=== PATIENT | female | born 1970 | race Caucasian/White ===

== ENCOUNTER 2020-02-03 15:05 | Emergency (ER) | payer MEDICAID ==
[~2020-02-03] VITALS: Ht 165.1 cm; Wt 78.6 kg
[~2020-02-03 15:05] MED LIST: ELA25 PO; ORE25 PO
[2020-02-03 15:06] VITALS: BP 150/67
--- NOTE | 2020-02-03 15:15 | NUR ---
PT C/O LEFT SHOULDER PAIN FOR 8 MONTHS. DENIES TRAUMA/INJURY OR FALL TO THE LEFT SHOULDER. PT DID XRAY ON 08/17/2019 SHOWED POSIBLE ENCHONDROMA. MRI WAS DONE ON 01/03/2020 SHOWED ENCHONDROMA WITHIN THE PROXIMAL HUMERUS, MILD TENDINOSIS OF THE SUPRASPINATUS AND INFRASPINATUS. OTHERWISE, NO ERYTHEMA, EDEMA, OR DEFORMITY NOTICED ON PT'S LEFT SHOULDER. PMH: NONE MEDS: GABAPENTIN
[2020-02-03] MEDS ORDERED: ACETAMINOPHEN 325 MG TAB PO ONE (15:35)
--- NOTE | 2020-02-03 15:39 | NUR ---
X-Ray at bedside.
== END 2020-02-03 17:00 | disposition home or self-care (01) ==
LOC: MED 15:05
DX: M25.512 Pain in left shoulder (principal); I10 Essential (primary) hypertension; Z79.899 Other long term (current) drug therapy
CPT/HCPCS: 71045; 73020; 73060; 93005; 99284

== ENCOUNTER 2020-02-12 12:21 | Emergency (ER) | payer MEDICAID ==
[~2020-02-12] VITALS: Ht 162.6 cm; Wt 78.9 kg
[2020-02-12 12:21] VITALS: BP 186/96
--- NOTE | 2020-02-12 12:26 | NUR ---
EKG CALLED TO BEDSIDE.
--- NOTE | 2020-02-12 12:26 | NUR ---
PT BIB TRIAGE NURSE TO BED 5.
--- NOTE | 2020-02-12 12:36 | NUR ---
50 Y/F PRESENTS TO ED C/O INTERMITTENT LEFT SIDED CHEST PAIN WITH PRESSURE AND NUMBNESS SENSATIONS RADIATING TO JOSE ARMS FOR 2 DAYS. PT ALSO C/O SOB. DENIES N/V/D, FEVER, COUGH OR DYSURIA. PT REPORTS TAKING ASA THIS MORNING WITH SLIGHT RELIEF. PMH: HTN NKDA RX- METOPROLOL
--- NOTE | 2020-02-12 13:13 | NUR ---
DR. CHAVARRIA AT BEDSIDE.
[2020-02-12] MEDS ORDERED: KETOROLAC 60 MG/2 ML VIAL IM ONE (13:15)
--- NOTE | 2020-02-12 13:50 | NUR ---
NADR, PT REPORTS DECREASED PAIN. ERMD MADE AWARE.
[2020-02-12 13:58] VITALS: BP 186/96
--- NOTE | 2020-02-12 13:58 | NUR ---
Patient discharged with v/s stable. Written and verbal after care instructions given and explained. Patient alert, oriented and verbalized understanding of instructions. Ambulatory with steady gait. All questions addressed prior to discharge. ID band removed. Patient advised to follow up with PMD. Rx of NORCO AND MOTRIN given. Patient educated on indication of medication including possible reaction and side effects. Opportunity to ask questions provided and answered.
== END 2020-02-12 13:58 | disposition home or self-care (01) ==
LOC: MED 12:21
DX: R07.9 Chest pain, unspecified (principal); I10 Essential (primary) hypertension; Z79.899 Other long term (current) drug therapy
CPT/HCPCS: 96372; 99283; J1885

== ENCOUNTER 2023-10-23 18:23 | Emergency (ER) | payer MEDICAID ==
[~2023-10-23] VITALS: Ht 167.6 cm; Wt 79.5 kg
[~2023-10-23 18:23] MED LIST changes: +AMIT25TA51 PO; -ELA25 PO; +HYDR-4004 PO; -ORE25 PO
[2023-10-23 18:43] VITALS: BP 133/79; PULSE 70; RESP 17; TEMP 98.1; O2SAT 96
[2023-10-23 19:36] LABS: BASOPHILS # (AUTO) 0.1 K/uL (0.00-0.22); BASOPHILS % (AUTO) 0.6 % (0.0-2.0); EOSINOPHILS # (AUTO) 0.1 K/uL (0-0.4); EOSINOPHILS % (AUTO) 0.7 % (0.0-4.0); HEMATOCRIT 43.3 % (36-48); HEMOGLOBIN 14.6 g/dL (12.0-16.0); LYMPHOCYTES # (AUTO) 2.6 K/uL (2.5-16.5); LYMPHOCYTES % (AUTO) 28.4 % (20.5-51.1); MEAN CORPUSCULAR HEMOGLOBIN 31 pg (27-31); MEAN CORPUSCULAR HGB CONC 34 g/dL (33-37); MEAN CORPUSCULAR VOLUME 90.3 fL (80-94); MONOCYTES # (AUTO) 0.6 K/uL (0.8-1.0); MONOCYTES % (AUTO) 6.7 % (1.7-9.3); NEUTROPHILS # (AUTO) 5.8 K/uL (1.8-7.7); NEUTROPHILS % (AUTO) 63.6 % (42.2-75.2); PLATELET COUNT (AUTO) 202 K/uL (140-450); RED CELL DISTRIBUTION WIDTH 13.6 % (11.6-13.7); WHITE BLOOD COUNT (AUTO) 9.1 K/uL (4.8-10.8)
[2023-10-23 19:48] VITALS: O2SAT 96
[2023-10-23 19:50] LABS: ANION GAP 12.8 (8-16); CALCIUM 9.2 mg/dL (8.5-10.1); CARBON DIOXIDE 29.3 mmol/L (21-32); CREATININE 0.9 mg/dL (0.6-1.3); POTASSIUM 3.1 mmol/L (3.5-5.1)
[2023-10-23 19:55] LABS: ALBUMIN 4.3 g/dL (3.4-5.0); BILIRUBIN,DIRECT 0.1 mg/dL (0.0-0.3); TOTAL BILIRUBIN 0.7 mg/dL (0.0-1.0); TOTAL PROTEIN, SERUM 7.8 g/dL (6.4-8.2)
[2023-10-23 20:15] LABS: BILIRUBIN,URINE NEGATIVE (NEGATIVE); BLOOD, URINE NEGATIVE (NEGATIVE); COLOR,URINE YELLOW (YELLOW); LEUKOCYTE ESTERASE ,URINE TRACE (NEGATIVE); NITRITE, URINE NEGATIVE (NEGATIVE); PROTEIN,URINE NEGATIVE (NEGATIVE); UGLUCOSE NEGATIVE (NEGATIVE); UROBILINOGEN,URINE 0.2 EU/dL (0.2 - 1)
[2023-10-23 20:16] LABS: APPEARANCE,URINE HAZY (CLEAR)
[2023-10-23 20:20] LABS: BACTERIA,URINE 1+ /HPF (None Seen); MUCUS,URINE None Seen /LPF (None Seen); RBC,URINE 0 /HPF (0-5); SQUAMOUS EPITHELIAL CELL,UR 0-3 (FEW) /LPF (0-3 (FEW)); WBC,URINE 0-5 /HPF (0-5)
[2023-10-23] MEDS: POTASSIUM CHLORIDE 10 MEQ TABER PO ONE (20:55)
[2023-10-23 21:10] VITALS: BP 133/79; PULSE 70; RESP 17; TEMP 98.1; O2SAT 96
== END 2023-10-23 21:11 | disposition home or self-care (01) ==
LOC: MED 18:23
DX: K82.8 Other specified diseases of gallbladder (principal); R11.0 Nausea; R30.0 Dysuria; I10 Essential (primary) hypertension; Z79.899 Other long term (current) drug therapy
CPT/HCPCS: 36415; 76705; 80048; 80076; 81001; 83690; 85025; 99284; Q0092